=== PATIENT | male | born 1955 | race Caucasian/White ===

== ENCOUNTER 2019-06-28 06:20 | Outpatient (CLI) | payer OTHER | END 2019-06-28 06:21 | disposition home or self-care (01) | LOC: LABBT 06:20 | PROVIDERS: ATTEND Orthopaedic Surgery | DX: Z01.812 Encounter for preprocedural laboratory examination (principal); M17.11 Unilateral primary osteoarthritis, right knee | CPT/HCPCS: 87081 ==

== ENCOUNTER 2019-07-05 10:39 | Day surgery (SDC) | payer OTHER ==
[2019-06-28 09:19] VITALS: BMI 31.9
[2019-06-28 10:18] LABS: Anion Gap 14 mmol/L (10-20); BUN (Urea Nitrogen) 19 mg/dL (8.4-25.7); Calc. Creatinine Clearance 0 mL/min (70-130); Calcium 9.6 mg/dL (7.8-10.44); Carbon Dioxide 24 mmol/L (23-31); Chloride 100 mmol/L (98-107); Estimated GFR-MDRD 68; Glucose 80 mg/dL (80-115); Potassium 3.3 mmol/L (3.5-5.1); Sodium 135 mmol/L (136-145)
[2019-06-28 10:22] LABS: INR-International Normal Ratio 0.9; Prothrombin Time 12.6 SEC (12.0-14.7)
[2019-06-28 10:25] LABS: Hemoglobin 15.5 g/dL (14.0-18.0); Mean Corpuscular HGB CONC 32.9 g/dL (32.0-36.0); Mean Corpuscular Hemoglobin 31.6 pg (27.0-31.0); Mean Corpuscular Volume 96.2 fL (78.0-98.0); Mean Platelet Volume 7.6 fL (7.4-10.4); Platelet Count 206 thou/uL (130-400); RBC Distribution Width 12.1 % (11.5-14.5); Red Blood Cell (RBC) Count 4.91 mill/uL (4.70-6.10); White Blood Cell (WBC) Count 5.8 thou/uL (4.8-10.8)
[2019-07-05] MEDS ORDERED: Vancomycin 1.5 GRAM/300 ML BAG 1.5 GM/300 ML BAG ONE (11:13)
[2019-07-05] MEDS ORDERED: Ondansetron PF 4 MG/2 ML Vial ONE (11:45)
[2019-07-05] MEDS ORDERED: diphenhydrAMINE 50 MG/ML VIAL ONE (11:45)
[2019-07-05] MEDS ORDERED: EPHEDRINE 25 MG/5 ML SYRINGE ONE (11:45)
[2019-07-05] MEDS ORDERED: Ropivacaine 0.2% HCl/PF (40 MG/20 ML VIAL) ONE (11:45)
[2019-07-05] MEDS ORDERED: Ropivacaine 0.5% HCl/PF (150 MG/30 ML VIAL) ONE (11:45)
[2019-07-05] MEDS ORDERED: Dexamethasone 20 MG/5 ML VIAL ONE (11:45)
[2019-07-05] MEDS ORDERED: PROPOFOL 200 MG/20 ML VIAL ONE (11:45)
[2019-07-05] MEDS ORDERED: Famotidine/PF 20 mg/2ml Vial ONE (11:58)
[2019-07-05] MEDS ORDERED: Fentanyl 100 MCG/2 ML VIAL ONE ×3 (12:00→15:06)
[2019-07-05] MEDS ORDERED: HYDROcodone/Acetaminophen 10/325 mg Tablet PO PRN (12:34)
[2019-07-05] MEDS ORDERED: Ropivacaine HCl/PF 250 ML in Premix Bag 1 BAG NERVE BLCK SCH (12:34)
[2019-07-05] MEDS ORDERED: traMADol HCl 50 MG TAB PO PRN ×2 (12:34)
[2019-07-05] MEDS ORDERED: Promethazine HCl 25 MG/ML VIAL IM PRN ×2 (12:34→14:50)
[2019-07-05] MEDS ORDERED: Ondansetron PF 4 MG/2 ML Vial IVP PRN (12:34)
[2019-07-05] MEDS ORDERED: Zolpidem Tartrate 5 MG TAB PO PRN (12:34)
[2019-07-05] MEDS ORDERED: Acetaminophen 325 MG TAB PO PRN (12:34)
[2019-07-05] MEDS ORDERED: Fentanyl 100 MCG/2 ML VIAL IV PRN (12:35)
[2019-07-05] MEDS ORDERED: HYDROmorphone 2 MG/ML VIAL SLOW IVP PRN (14:50)
[2019-07-05] MEDS ORDERED: Meperidine HCl/PF 25 MG/ML VIAL SLOW IVP PRN (14:50)
[2019-07-05] MEDS ORDERED: Ondansetron HCl/PF 4 MG/2 ML Vial IVP PRN (14:50)
[2019-07-05] MEDS ORDERED: Morphine Sulfate 2 MG/ML SYRINGE SLOW IVP PRN (14:50)
[2019-07-05] MEDS ORDERED: Promethazine HCl 25 MG/ML VIAL SLOW IVP PRN (14:50)
[2019-07-05] MEDS ORDERED: Ketorolac Tromethamine 30 MG/ML VIAL ONE (15:41)
--- NOTE | 2019-07-05 16:14 | RAD ---
RIGHT KNEE 2 VIEWS: Date: 07/05/2019 HISTORY: Status post arthroplasty. FINDINGS: Two views of the right knee demonstrate postsurgical changes, compatible with right knee arthroplasty . IMPRESSION: Expected postoperative changes. POS: [facility]
--- NOTE | 2019-07-05 16:53 | OP ---
DATE OF PROCEDURE: 07/05/2019 PREOPERATIVE DIAGNOSES: Right knee osteoarthritis with patellofemoral instability. POSTOPERATIVE DIAGNOSES: Right knee osteoarthritis with patellofemoral instability. PROCEDURE PERFORMED: Right total knee arthroplasty. ANESTHESIA: General. MEDICAL CENTER DIRECTOR: Pb Sesay PA-C TOURNIQUET TIME: 74 minutes at 300 mmHg. IMPLANTS: DePuy Sigma System was used with a size 3 femur, size 3 tibia, 10 mm poly, and 38 mm all poly patellar button with Simplex cement. COMPLICATIONS: None. DRAINS: None. SPECIMEN: None. OUTCOME: Stable total knee. INDICATIONS: Mr. Najera is a pleasant 64-year-old gentleman with a long history of right knee problems including recurrent patellofemoral dislocations and now severe patellofemoral arthrosis with some evidence of tricompartmental degenerative changes. After discussion with him including risks and benefits, we decided to proceed with total knee arthroplasty. Informed consent has been obtained I believe all questions have been answered. DESCRIPTION OF PROCEDURE: The patient was brought to the operating room and a time-out performed followed by induction of general anesthesia. Following induction of general anesthesia, the patient was positioned supine and a sterile prep and drape was performed of the right lower extremity. The limb was then exsanguinated with Esmarch bandage, tourniquet inflated to 300 mmHg. A midline anterior knee incision was made followed by medial parapatellar arthrotomy. The patella was inverted and remnants of medial lateral menisci were excised along with the ACL. Next, a step drill was used to obtain a starting point at the distal femur. Next, followed by intramedullary alignment for an initial distal femoral cut. The sizing block was then pinned into the distal femur with a size 3 being appropriate size. The anterior-posterior as well as chamfer cuts were then performed and a trial reduction with a size three femur showed good fit. Next, a step drill was used to obtain a starting point at the proximal tibia for intramedullary alignment for the proximal tibial cut. Once aligned, the intramedullary alignment jig inserted into the canal of the tibia. The cutting block was pinned to the anterior proximal tibia and then the cut performed. This portion of the tibial plateau was then excised along with further remnants of medial lateral menisci. This was sized to a size 3 and then the size 3 trial was further prepared using the reamer and cruciform punch stabilizing the trial to the proximal tibia. Trial reduction was used with a 3 femur and a 10 mm poly, which gave good flexion-extension gaps and stability. Next, the patella was resurfaced freehand and a size 38 patellar button found to be of appropriate size. The PEG holes were then drilled into the patella. The PEG holes also drilled into the femur for its final component. At the completion of this, all trial components were removed and then the knee was irrigated with a total of 5 L of normal saline using Pulsavac. At the completion of this, cement was mixed and the tibial to the tray cemented in place followed by cementing of the femoral component. The 10 mm poly production assistant was then applied and the knee brought into axial alignment and compression with excess cement removed. The patellar button was then cemented in place. Once the cement had fully cured and excess cement removed. The knee again inspected in excess cement removed followed by wound closure. A #2 Vicryl was used to reapproximate the quadriceps mechanism, followed by 2-0 Vicryl and leighton for the skin. Xeroform gauze and Pepito wrap dressing were then applied to the knee and the tourniquet was let down with the patient transferred to recovery room in stable condition. There were no complications. He tolerated the procedure well. Job ID: [id number]
[2019-07-05] MEDS: hydrALAZINE 25 MG TAB PO SCH ×2 (17:16→20:57)
--- NOTE | 2019-07-05 17:17 | PDOC.HOSPP ---
- Subjective Encounter Date: 07/05/19 Encounter Time: 17:15 Subjective: Patient seen and examined. No new complaints. s/p Right total knee replacement. Consulted for medical management. - Objective Vital Signs & Weight: Vital Signs (12 hours) Temp Pulse Resp BP Pulse Ox 07/05/19 15:50 98.0 F 85 18 181/73 H 97 Weight Weight 210 lb Result Diagrams: 06/28/19 09:10 06/28/19 09:10 EKG Reviewed by me: Yes (05/03/2019) Hospitalist ROS - Review of Systems Constitutional: denies: fever, chills, sweats, weakness, malaise, other Respiratory: denies: cough, dry, shortness of breath, hemoptysis, SOB with excertion, pleuritic pain, sputum, wheezing, other Cardiovascular: denies: chest pain, palpitations, orthopnea, paroxysmal noc. dyspnea, edema, light headedness, other Gastrointestinal: denies: nausea, vomiting, abdominal pain, diarrhea, constipation, melena, hematochezia, other - Exam General Appearance: NAD, awake alert Eye: anicteric sclera ENT: normocephalic atraumatic Heart: RRR, no murmur, no gallops, no rubs, normal peripheral pulses Respiratory: CTAB, no wheezes, no rales, no ronchi Gastrointestinal: soft, non-tender, non-distended, no guarding, no rigidity Extremities: no edema Neurological: no focal deficits Psychiatric: normal affect, A&O x 3 Hosp A/P (1) HTN (hypertension) Code(s): I10 - ESSENTIAL (PRIMARY) HYPERTENSION Status: Chronic Plan: Continue Procardia XL and hydralazine Monitor blood pressure (2) HLD (hyperlipidemia) Code(s): E78.5 - HYPERLIPIDEMIA, UNSPECIFIED Status: Acute Plan: Continue Crestor q hs (3) Status post total knee replacement, right Code(s): Z96.651 - PRESENCE OF RIGHT ARTIFICIAL KNEE JOINT Status: Acute Plan: ASA for DVT prophylaxis per [facility] protocol PT per [facility] protocol Nerve block per anesthesia (4) Hypokalemia Code(s): E87.6 - HYPOKALEMIA Status: Acute Plan: Mild, K+ 3.3 Recheck BMP in am
[2019-07-05] MEDS: CEFAZOLIN 2 GM in Premix Bag 1 BAG IVPB SCH (20:55)
[2019-07-05] MEDS: Aspirin 81 mg Enteric Coated Tablet PO SCH (20:58)
[2019-07-05] MEDS ORDERED: Rosuvastatin 20 MG TAB PO SCH (21:00)
[2019-07-05] MEDS: Ketorolac Tromethamine 30 MG/ML VIAL IVP SCH (21:00)
[2019-07-06] MEDS: Ketorolac Tromethamine 30 MG/ML VIAL IVP SCH ×2 (04:39→10:59)
[2019-07-06] MEDS: CEFAZOLIN 2 GM in Premix Bag 1 BAG IVPB SCH (04:39)
[2019-07-06 05:08] LABS: #Monocytes 0.7 thou/uL (0.11-0.59); #Neutrophils 7.4 thou/uL (1.40-6.50); %Basophils 0.5 % (0.0-1.0); %Eosinophils 0.3 % (0.0-10.0); %Lymphocytes 10.4 % (21.0-51.0); %Monocytes 7.7 % (0.0-10.0); %Neutrophils 81.1 % (42.0-75.0); Hemoglobin 13.7 g/dL (14.0-18.0); Mean Corpuscular HGB CONC 34.1 g/dL (32.0-36.0); Mean Corpuscular Hemoglobin 33.1 pg (27.0-31.0); Mean Platelet Volume 7.3 fL (7.4-10.4); Platelet Count 207 thou/uL (130-400); Red Blood Cell (RBC) Count 4.14 mill/uL (4.70-6.10); White Blood Cell (WBC) Count 9.1 thou/uL (4.8-10.8)
[2019-07-06 05:22] LABS: Potassium 3.8 mmol/L (3.5-5.1); Sodium 138 mmol/L (136-145)
[2019-07-06 05:23] LABS: Anion Gap 12 mmol/L (10-20); BUN (Urea Nitrogen) 16 mg/dL (8.4-25.7); Calc. Creatinine Clearance 94 mL/min (70-130); Calcium 8.7 mg/dL (7.8-10.44); Carbon Dioxide 26 mmol/L (23-31); Chloride 104 mmol/L (98-107); Estimated GFR-MDRD 71; Glucose 116 mg/dL (80-115)
[2019-07-06 07:48] VITALS: TEMP 97.7
[2019-07-06] MEDS: Aspirin 81 mg Enteric Coated Tablet PO SCH (08:31)
[2019-07-06] MEDS: hydrALAZINE 25 MG TAB PO SCH ×2 (08:32→13:47)
[2019-07-06] MEDS ORDERED: Prevnar 13-Val Conj/PF 0.5 ML SYRINGE IM ONE (09:00)
[2019-07-06] MEDS ORDERED: NIFEdipine XL 90 MG TAB PO SCH (09:00)
[2019-07-06] MEDS ORDERED: IRON PO SCH (09:00)
[2019-07-06] MEDS ORDERED: Hydrochlorothiazide 25 MG TAB PO SCH (09:00)
[2019-07-06] MEDS ORDERED: Ubidecarenone 50 MG CAP PO SCH (09:00)
[2019-07-06] MEDS ORDERED: Loratadine 10 MG TAB PO SCH (09:00)
[2019-07-06] MEDS: HYDROcodone/Acetaminophen 10/325 mg Tablet PO PRN ×2 (10:59→15:00)
[2019-07-06 11:44] VITALS: BP 147/67
[2019-07-06] MEDS ORDERED: Ropivacaine 0.2% 550 ML 550 ML NERVE BLCK SCH (14:19)
== END 2019-07-06 15:37 | disposition home or self-care (01) ==
LOC: SDC 10:39 → SJJU 16:05 → SDC 07-06 15:37
PROVIDERS: ATTEND Orthopaedic Surgery
PROC: 0SRC0J9 Replacement of Right Knee Joint with Synthetic Substitute, Cemented, Open Approach (ICD-10-PCS; principal; 2019-07-06)
DX: M17.11 Unilateral primary osteoarthritis, right knee (principal); I10 Essential (primary) hypertension; I25.10 Atherosclerotic heart disease of native coronary artery without angina pectoris; E78.5 Hyperlipidemia, unspecified; E87.6 Hypokalemia; G47.30 Sleep apnea, unspecified; Z79.82 Long term (current) use of aspirin; Z79.899 Other long term (current) drug therapy; Z87.891 Personal history of nicotine dependence; Z88.1 Allergy status to other antibiotic agents; Z88.8 Allergy status to other drugs, medicaments and biological substances; Z95.1 Presence of aortocoronary bypass graft
CPT/HCPCS: 36415; 80048; 85025; 85027; 85610; 86850; 86900; 86901; A4306; C1713; C1776; J0690; J1100; J1200; J1885; J2405; J2704; J2795; J3010; S0028

== ENCOUNTER 2019-09-21 07:19 | Outpatient (CLI) | payer OTHER ==
--- NOTE | 2019-09-21 08:46 | MRI ---
MRI Lumbar Spine Noncontrast: HISTORY: Low back pain that radiates down right leg for years. Right-sided sciatica. COMPARISON: None FINDINGS: An oval-shaped increased T2-weighted signal intensity structure seen in the superior pole left kidney which is incompletely imaged on this exam. This structure measures 3.6 cm x 2 cm and likely represents a cyst. Follow-up imaging with ultrasound exam is recommended given incomplete visualizati on of this structure. Conus medullaris is normal in morphology and terminates at the T12-L1 level. Few scattered areas of increased T1 and T2-weighted signal intensity are seen within the vertebral shirin dies which may represent scattered hemangiomas and/or focal areas of fat. T12-L1: Mild disc osteophyte complex is present. There is no significant central canal or neural fora akosua narrowing. L1-2: Mild disc osteophyte complex and mild facet hypertrophic changes. Findings result in mild centr al canal narrowing. Minimal encroachment on each neural foramen is present. L2-3: Mild broad-based disc osteophyte complex is present. Facet hypertrophic changes and ligamentous thickening are noted. Mild central canal narrowing is present with greater degree of mass effect on the right posterolateral aspect of thecal sac due to facet hypertrophic changes and ligamentous th ickening. Mild narrowing of the lateral recesses is present at this level. No significant neural foraminal narrowing is seen. L3-4: Mild disc osteophyte complex is present with mild facet hypertrophic changes. Slight flattening of the anterior aspect of thecal sac is present without significant central canal or neural foraminal narrowing present. L4-5: Mild disc osteophyte complex is present. There are moderate facet hypertrophic changes and liga mentous thickening. Findings result in mild narrowing of the central spinal canal with only minimal encroachment each neural foramen. L5-S1: Loss of intervertebral disc height. Broad-based disc osteophyte complex and facet hypertrophic changes are present. Mild bilateral neural foraminal narrowing is present. There is no mass defect on the thecal sac, but there is encroachment on each traversing S1 nerve root in the subarticular zon es due to facet hypertrophic changes and the disc osteophyte complex. IMPRESSION: 1. Incompletely imaged hyperintense lesion in the superior pole left kidney likely representing a cys t. However, given that this is incompletely imaged, follow-up renal ultrasound is recommended. 2. Multilevel degenerative changes lumbar spine.
== END 2019-09-21 07:20 | disposition home or self-care (01) ==
LOC: BICMRI 07:19
PROVIDERS: ATTEND Orthopaedic Surgery
DX: M54.31 Sciatica, right side (principal); N28.9 Disorder of kidney and ureter, unspecified; M47.816 Spondylosis without myelopathy or radiculopathy, lumbar region
CPT/HCPCS: 72148